=== PATIENT | female | born 1960 | race African-American/Black ===

== ENCOUNTER 2016-09-20 14:57 | Emergency (ER) | payer OTHER ==
[~2016-09-20] VITALS: Ht 170.2 cm; Wt 79.4 kg
[2016-09-20] MEDS ORDERED: MORPHINE IR 15 MG TABLET PO ONE (15:15)
[2016-09-20] MEDS ORDERED: MORP15TA PO (15:38)
--- NOTE | 2016-09-20 15:38 | PHYS DOC ---
Past Medical History Past Medical History: Anxiety, COPD, Depression, Fibromyalgia, Hypertension Additional Past Medical Histor: Back pain Past Surgical History: , Hip Replacement Alcohol Use: None Drug Use: Cocaine, Opiates Adult General Chief Complaint Chief Complaint: LOWER EXT PAIN HPI HPI 56-year-old female presenting to the emergency department today for right knee and right hip pain after a mechanical fall yesterday. She reports tripping. She was ambulatory after the event. She has pain in her right hip and knee that radiates down into her foot. It is sharp moderate and worse with walking. She denies any chest pain shortness of breath abdominal pain. Review of systems is negative for head injury or loss of consciousness neck injury back pain. She denies chest pain shortness breath or abdominal pain. All other review of systems is negative unless otherwise noted in history of present illness. Review of Systems Review of Systems SEE ABOVE. Current Medications Current Medications Current Medications Medications (Trade) Dose Ordered Sig/Mirella Start Time Stop Time Status Last Admin Dose Admin Morphine Sulfate (Morphine Ir) 15 mg 1X ONCE 09/20/16 15:15 09/20/16 15:20 DC 09/20/16 15:52 15 MG Allergies Allergies Allergies Coded Allergies Type Severity Reaction Last Updated Verified No Known Drug Allergies 09/20/16 No Physical Exam Physical Exam Constitutional: Well developed, well nourished, no acute distress, non-toxic appearance. HENT: Normocephalic, atraumatic, bilateral external ears normal, oropharynx moist, no oral exudates, nose normal. [] Eyes: PERRLA, EOMI, conjunctiva normal, no discharge. Neck: Normal range of motion, no tenderness, supple, no stridor. No midline tenderness of the cervical thoracic or lumbar spine. No step-offs. Cardiovascular:Heart rate regular rhythm, no murmur [] Lungs & Thorax: Bilateral breath sounds clear to auscultation Abdomen: Bowel sounds normal, soft, no tenderness, no masses, no pulsatile masses. [] Skin: Warm, dry, no erythema, no rash. Back: No tenderness, no CVA tenderness. Extremities: The patient's right hip has mild pain with passive range of motion. There is mild pain with passive range of motion of the right knee. No ecchymosis lacerations or abrasions to the skin. The right foot is normal color and normal temperature palpable pulse 2 second cap refill with normal neurovascular status. The remainder the patient's extremities have normal range of motion and are nontender with 2 second cap refill. Neurologic: Alert and oriented X 3, normal motor function, normal sensory function, no focal deficits noted. [] Psychologic: Affect normal, judgement normal, mood normal. [] Current Patient Data Vital Signs Vital Signs Date Time Temp Pulse Resp B/P (MAP) Pulse Ox O2 Delivery O2 Flow Rate FiO2 09/20/16 15:53 74 17 111/69 (83) 100 Room Air 09/20/16 15:06 98.2 98.2 EKG EKG [] Radiology/Procedures Radiology/Procedures [] Course & Med Decision Making Course & Med Decision Making Pertinent Labs and Imaging studies reviewed. (See chart for details) [] 56-year-old female presenting to the emergency department with right hip pain and right knee pain. Vital signs afebrile normal heart rate. Otherwise unremarkable. Pertinent physical exam findings showed mild tenderness with range of motion of the hip and knee. X-rays were obtained. X-rays of the right hip and knee were unremarkable. There was an incidental finding of a mild translucency through the patient's previous orthopedic hardware. The patient states that her pain in her left hip has been chronic since the surgery. She denies any new pain and is able to ambulate on the extremity. I discussed the case with Dr. Simental who stated that she would be able to follow-up the radiographic fracture and instructed weightbearing as tolerated. The patient was given oral pain medications in the emergency department which improved her pain. She was able to ambulate without difficulty. The patient was then discharged home in stable condition to follow up with their primary care physician over the next 2-3 days if her symptoms continued. They were to return if their symptoms worsened or if they were concerned for any reason. Face-to- face discharge instructions and return precautions were given. Patient's questions were answered to their satisfaction. Patient is comfortable plan. Dragon Disclaimer Dragon Disclaimer This electronic medical record was generated, in whole or in part, using a voice recognition dictation system. Departure Departure Impression: Primary Impression: Right hip pain Additional Impressions: Right knee pain Closed left hip fracture Disposition: 01 HOME, SELF-CARE Condition: STABLE Referrals: ISSAC ALICIA MD (PCP) Patient Instructions: Hip Pain, Knee Pain Additional Instructions: Thank you for allowing us to participate in your care today. Followup with your primary care physician in 3 days if your symptoms do not improve. If you do not have a primary care provider you can ask for a list of our primary care providers. Return to the emergency department you have any new or concerning findings. This should be evaluated by the primary care physician and any necessary consulting services for continued management within a few days after discharge. Return to emergency room if you have any new or concerning symptoms including but not limited to fever, chills, nausea, vomiting, intractable pain, any new rashes, chest pain, shortness of air, uncontrolled bleeding, difficulty breathing, and/or vision loss. You may have been prescribed medication that can change in your level of thinking and ability to operate machinery. These medications include hydrocodone and Ativan. Also, Benadryl has been known to do this as well. Be sure to check with your pharmacist and ask if the medications you've prescribed can affect your level of consciousness. I recommend not operating heavy machinery or driving while on medication such as these. Scripts Morphine Sulfate (MORPHINE SULFATE) 15 Mg Tablet 1 TAB PO PRN Q6-8HRS Y for SEVERE PAIN, #8 TAB Prov: FAREED SPARROW MD 09/20/16 Problem Qualifiers FAREED SPARROW MD September 20, 2016 15:38
[2016-09-20 15:53] VITALS: BP 111/69
--- NOTE | 2016-09-20 15:54 | RAD ---
Indication: Right knee pain. Time of exam 1539 hours. 3 views of the right knee demonstrate medial compartmental degenerative change with joint space narrowing and marginal spurring. No fracture, dislocation or effusion is detected. Impression: Medial compartment degenerative change. No acute bony abnormality is detected.
--- NOTE | 2016-09-20 15:56 | RAD ---
Indication: Right hip pain, fall. Time of exam 1535 hours. An AP view of the pelvis and multiple views bilateral hips were obtained. There is a lateral plate and compression screw transfixing the left femoral neck. There is a lucency involving the medial cortex of the femoral neck on the left consistent with a fracture line. The hardware is intact without fracture or loosening. The right hip demonstrates normal femoral acetabular alignment. The right femoral neck is intact. The rami appear intact. Impression: Postop changes to the left hip. There is a fracture line in the left femoral neck medially. No displacement is seen. No acute feature in the right hip is identified.
== END 2016-09-20 17:20 | disposition home or self-care (01) ==
LOC: ER 14:57
DX: S72.002A Fracture of unspecified part of neck of left femur, initial encounter for closed fracture (principal); M25.561 Pain in right knee; F41.9 Anxiety disorder, unspecified; J44.9 Chronic obstructive pulmonary disease, unspecified; F32.9 Major depressive disorder, single episode, unspecified; M79.7 Fibromyalgia; I10 Essential (primary) hypertension; F14.10 Cocaine abuse, uncomplicated; F11.10 Opioid abuse, uncomplicated; Z96.642 Presence of left artificial hip joint; W01.0XXA Fall on same level from slipping, tripping and stumbling without subsequent striking against object, initial encounter; Y93.89 Activity, other specified; Y92.89 Other specified places as the place of occurrence of the external cause; Y99.8 Other external cause status
CPT/HCPCS: 73502; 73562; 99284

== ENCOUNTER 2016-10-28 23:03 | Emergency (ER) | payer OTHER ==
[~2016-10-28] VITALS: Ht 172.7 cm; Wt 79.4 kg
[~2016-10-28 23:03] MED LIST: MORP15TA PO
[2016-10-28] MEDS ORDERED: IV NORMAL SALINE 500ML BAG 500 ML IV ONE (23:30)
[2016-10-28] MEDS ORDERED: diphenhydrAMINE 50 MG/ML VIAL IVP ONE ×2 (23:30→23:45)
[2016-10-28] MEDS ORDERED: METOCLOPRAMIDE HCL 10 MG/2 ML VIAL. IV ONE ×2 (23:30→23:45)
--- NOTE | 2016-10-28 23:31 | PHYS DOC ---
Past Medical History Past Medical History: Anxiety, Arthritis, Bronchitis, Cancer, COPD, Depression , Fibromyalgia, High Cholesterol, Hypertension, Hypothyroid, Migraines Additional Past Medical Histor: Back pain, DDD Past Surgical History: , Hip Replacement Alcohol Use: None Drug Use: Cocaine, Opiates Adult General Chief Complaint Chief Complaint: HEADACHE HPI HPI 56-year-old female presenting the emergency department with headache. She describes as a pressure sensation in the frontal sinus region it is nonradiating moderate intermittent. It comes and goes and is been present for the last 4 days. She denies numbness weakness tingling. She denies vision changes. She reports feeling nasal congestion. The pain was not sudden in onset. Review of systems is negative for focal numbness weakness tingling vision changes. She denies chest pain shortness of breath fevers chills. She denies neck stiffness. All other review of systems is negative unless otherwise noted in history of present illness. Pertinent physical exam findings normal range of motion of the neck. Nontender neck. Negative Brudzinski sign. Negative Kernig sign. Pupils are equal round and reactive. Normal neurologic exam. ED course: 56-year-old female presenting with a headache. Patient was given fluids Reglan and Benadryl for headache treatment. Head CT obtained. The patient was then discharged home in stable condition to follow up with their primary care physician over the next 2-3 days. They were to return if their symptoms worsened or if they were concerned for any reason. [id number] discharge instructions and return precautions were given. Patient's questions were answered to their satisfaction. Patient is comfortable plan. Review of Systems Review of Systems SEE ABOVE. Current Medications Current Medications Current Medications Medications (Trade) Dose Ordered Sig/Mirella Start Time Stop Time Status Last Admin Dose Admin Diphenhydramine HCl (Benadryl) 25 mg 1X ONCE 10/28/16 23:45 10/28/16 23:46 10/28/16 23:41 25 MG Metoclopramide HCl (Reglan) 10 mg 1X ONCE 10/28/16 23:45 10/28/16 23:46 10/28/16 23:41 10 MG Sodium Chloride 500 ml @ 500 mls/hr 1X ONCE 10/28/16 23:30 10/29/16 00:29 10/28/16 23:41 500 MLS/HR Allergies Allergies Allergies Coded Allergies Type Severity Reaction Last Updated Verified No Known Drug Allergies 09/20/16 No Physical Exam Physical Exam Constitutional: Well developed, well nourished, no acute distress, non-toxic appearance. HENT: Normocephalic, atraumatic, bilateral external ears normal, oropharynx moist, no oral exudates, nose normal. [] Eyes: PERRLA, EOMI, conjunctiva normal, no discharge. [] Neck: Normal range of motion, no tenderness, supple, no stridor. Cardiovascular:Heart rate regular rhythm, no murmur [] Lungs & Thorax: Bilateral breath sounds clear to auscultation [] Abdomen: Bowel sounds normal, soft, no tenderness, no masses, no pulsatile masses. Skin: Warm, dry, no erythema, no rash. [] Back: No tenderness, no CVA tenderness. Extremities: No tenderness, no cyanosis, no clubbing, ROM intact, no edema. [] Neurologic: Alert and oriented X 3, normal motor function, normal sensory function, no focal deficits noted. Psychologic: Affect normal, judgement normal, mood normal. [] Current Patient Data Vital Signs Vital Signs Date Time Temp Pulse Resp B/P (MAP) Pulse Ox O2 Delivery O2 Flow Rate FiO2 10/28/16 23:22 98.8 104 20 104/68 (80) 98 Room Air 98.8 EKG EKG [] Radiology/Procedures Radiology/Procedures [] Course & Med Decision Making Course & Med Decision Making Pertinent Labs and Imaging studies reviewed. (See chart for details) [] Dragon Disclaimer Dragon Disclaimer This electronic medical record was generated, in whole or in part, using a voice recognition dictation system. Departure Departure Impression: Primary Impression: Headache Disposition: 01 HOME, SELF-CARE Condition: STABLE Referrals: KENNETH TURCIOS (PCP) Patient Instructions: General Headache Without Cause Additional Instructions: Thank you for allowing us to participate in your care today. Followup with your primary care physician in 3 days if your symptoms do not improve. If you do not have a primary care provider you can ask for a list of our primary care providers. Return to the emergency department you have any new or concerning findings. This should be evaluated by the primary care physician and any necessary consulting services for continued management within a few days after discharge. Return to emergency room if you have any new or concerning symptoms including but not limited to fever, chills, nausea, vomiting, intractable pain, any new rashes, chest pain, shortness of air, uncontrolled bleeding, difficulty breathing, and/or vision loss. FAREED SPARROW MD Oct 28, 2016 23:31
[2016-10-28 23:37] VITALS: BP 105/64
--- NOTE | 2016-10-29 00:38 | RAD ---
INDICATION: HEADACHE X 4 DAYS COMPARISON: None. TECHNIQUE: Axial CT images obtained through the head without intravenous contrast. One or more of the following individualized dose reduction techniques were utilized for this examination: 1. Automated exposure control; 2. Adjustment of the mA and/or kV according to patient size; 3. Use of iterative reconstruction technique. FINDINGS: No intracranial hemorrhage. No midline shift. Basal cisterns patents. Ventricles and sulci are globally prominent. No acute osseous abnormality. Orbits and paranasal sinuses unremarkable. Scattered foci of low attenuation within the white matter. IMPRESSION: 1. No acute intracranial hemorrhage. 2. Scattered regions of low attenuation within the white matter. Non-specific in nature but frequently secondary to chronic small vessel ischemic disease. 3. Prominence of ventricles and sulci which is frequently secondary to age related volume loss. Electronically signed by: Enzo Huynh MD (10/29/2016 12:34 AM)
== END 2016-10-29 00:53 | disposition home or self-care (01) ==
LOC: ER 23:03
DX: R51 Headache (principal); R09.81 Nasal congestion; G43.909 Migraine, unspecified, not intractable, without status migrainosus; E03.9 Hypothyroidism, unspecified; E78.00 Pure hypercholesterolemia, unspecified; F32.9 Major depressive disorder, single episode, unspecified; F41.9 Anxiety disorder, unspecified; I10 Essential (primary) hypertension; J44.9 Chronic obstructive pulmonary disease, unspecified; M79.7 Fibromyalgia; F11.10 Opioid abuse, uncomplicated; F14.10 Cocaine abuse, uncomplicated; M19.90 Unspecified osteoarthritis, unspecified site; Z96.649 Presence of unspecified artificial hip joint
CPT/HCPCS: 70450; 96361; 96374; 96375; 99284; J1200; J2765; J7040